=== PATIENT | female | born 1980 | race American Indian/Alaskan Native ===

== ENCOUNTER 2020-06-13 20:06 | Emergency (ER) | payer SELFPAY ==
[2020-06-13 22:49] VITALS: BP 124/74
--- NOTE | 2020-06-14 03:22 | Emergency Department Report ---
ED General Adult HPI - General Chief complaint: GI Bleed Stated complaint: BLOOD IN STOOL Time Seen by Provider: 06/13/20 23:38 Source: patient Mode of arrival: Ambulatory Limitations: No Limitations - History of Present Illness Initial comments: rectal pain , burning, itching, x 1 week interimittently, pt stat hx of hemrrhoids x 1 week, pt is tolerating po intake without n/v there has been no Fever or chills, symptoms are exacerbated by po intake pians relived by nothing tried . Onset/Timin -: week(s) - Related Data Previous Rx's Medication Instructions Recorded Last Taken Type Hydrocortisone 2.5% [Proctosol-Hc] 1 applicatio [place] BID PRN #1 tube 06/14/20 Unknown Rx Lidocaine [Lidocaine CREAM] 1 applicatio TP Q4H PRN 10 Days #1 06/14/20 Unknown Rx box Allergies Allergy/AdvReac Type Severity Reaction Status Date / Time No Known Allergies Allergy Unverified 06/13/20 21:10 ED Review of Systems ROS: Stated complaint: BLOOD IN STOOL Other details as noted in HPI Constitutional: denies: chills, fever Eyes: denies: eye pain, eye discharge, vision change ENT: denies: ear pain, throat pain Respiratory: denies: cough, shortness of breath, wheezing Cardiovascular: denies: chest pain, palpitations Endocrine: no symptoms reported Gastrointestinal: abdominal pain, nausea, diarrhea. denies: vomiting, melena, hematochezia Genitourinary: denies: urgency, dysuria, frequency, hematuria, discharge, dyspareunia Musculoskeletal: denies: back pain, joint swelling, arthralgia Skin: denies: rash, lesions Neurological: numbness. denies: headache, weakness, paresthesias, confusion, vertigo Psychiatric: as per HPI Hematological/Lymphatic: denies: easy bleeding, easy bruising ED Past Medical Hx - Past Medical History Previous Medical History?: No - Surgical History Hx Appendectomy: Yes - Social History Smoking Status: Never Smoker Substance Use Type: None - Medications Home Medications: Home Medications Medication Instructions Recorded Confirmed Last Taken Type Hydrocortisone 2.5% [Proctosol-Hc] 1 applicatio [place] BID PRN #1 tube 06/14/20 Unknown Rx Lidocaine [Lidocaine CREAM] 1 applicatio TP Q4H PRN 10 Days #1 06/14/20 Unknown Rx box ED Physical Exam - General Limitations: No Limitations General appearance: alert, in no apparent distress - Head Head exam: Present: atraumatic, normocephalic - Eye Eye exam: Present: normal appearance, EOMI Pupils: Present: normal accommodation - ENT ENT exam: Present: mucous membranes moist, TM's normal bilaterally, normal external ear exam. Absent: normal orophraynx - Neck Neck exam: Present: normal inspection, full ROM. Absent: tenderness - Respiratory Respiratory exam: Present: normal lung sounds bilaterally. Absent: respiratory distress, wheezes, stridor, chest wall tenderness - Cardiovascular Cardiovascular Exam: Present: regular rate, normal rhythm, normal heart sounds. Absent: bradycardia, tachycardia, systolic murmur, diastolic murmur, rubs, gallop, clicks, JVD - GI/Abdominal GI/Abdominal exam: Present: soft, normal bowel sounds. Absent: distended, tenderness, guarding, rebound, rigid, bruit, pulsatile mass - Rectal Rectal exam: Present: hemorrhoids (external 1x1 inch, moderate erythema no blr) - Extremities Exam Extremities exam: Present: normal inspection, full ROM, normal capillary refill - Back Exam Back exam: Present: normal inspection, full ROM, muscle spasm. Absent: tenderness, CVA tenderness (R), CVA tenderness (L), vertebral tenderness, rash noted - Neurological Exam Neurological exam: Present: alert, oriented X3, CN II-XII intact, normal gait, reflexes normal. Absent: motor sensory deficit - Expanded Neurological Exam Expanded Patient oriented to: Present: person, place, time Speech: Present: fluid speech Cranial nerves: EOM's Intact: Normal, Gag Reflex: Normal Motor strength exam: RUE: 5, LUE: 5, RLE: 5, LLE: 5 Best Eye Response ([place]): (4) open spontaneously Best Motor Response (Carlos): (6) obeys commands Best Verbal Response (Carlos): (5) oriented [place] Total: 15 - Psychiatric Psychiatric exam: Present: normal mood - Skin Skin exam: Present: warm, dry, intact, normal color. Absent: cyanosis ED Course Vital Signs 06/13/20 21:08 Temperature 97.7 F Pulse Rate 68 Respiratory 17 Rate Blood Pressure 124/74 O2 Sat by Pulse 100 Oximetry ED Medical Decision Making - Lab Data abdominal pain is resolved pno pain , dc to home with rx precrptsss. hydrate as directed , return to [facility] if you are unable tolerate po intak, pt vebalized ageement and understanding of discharge plan. - EKG Data Rate: normal - Medical Decision Making Hemorrhoids, take medications as prescribed follow up with pcp , return to ed if symptoms worsen. Critical care attestation.: If time is entered above; I have spent that time in minutes in the direct care of this critically ill patient, excluding procedure time. ED Disposition Clinical Impression: Hemorrhoids Qualifiers: Hemorrhoid type: second degree Qualified Code(s): K64.1 - Second degree hemorrhoids Disposition: DC-01 TO HOME OR SELFCARE Is pt being admited?: No Does the pt Need Aspirin: No Condition: Stable Instructions: Nonsurgical Procedures for Hemorrhoids, Hemorrhoids, Cogg-ro-Yjva Prescriptions: Lidocaine [Lidocaine CREAM] 1 applicatio TP Q4H PRN 10 Days #1 box PRN Reason: Hemorrhoids Hydrocortisone 2.5% [Proctosol-Hc] 1 applicatio [place] BID PRN #1 tube PRN Reason: Hemorrhoids Referrals: LOIN GARCIA MD [Staff Physician] - 3-5 Days Forms: Accompanied Note, Work/School Release Form(ED) Time of Disposition: 03:42
== END 2020-06-14 04:00 | disposition home or self-care (01) ==
LOC: ED 20:06
DX: K64.1 Second degree hemorrhoids (principal)
CPT/HCPCS: 99282

== ENCOUNTER 2020-07-14 20:40 | Emergency (ER) | payer SELFPAY ==
[2020-07-14] MEDS ORDERED: ETOMIDATE 20 MG/10 ML INJ IV ONE (22:22)
[2020-07-14] MEDS ORDERED: ROCURONIUM 50 MG/5 ML INJ IV ONE (22:23)
[2020-07-15] MEDS ORDERED: hydrOXYzine HCL 25 MG TAB PO ONE (02:16)
--- NOTE | 2020-07-15 02:19 | Emergency Department Report ---
ED General Adult HPI - General Chief complaint: Allergic Reaction Stated complaint: ALLERGIC REACTION Time Seen by Provider: 07/15/20 02:11 Source: patient Mode of arrival: Ambulatory Limitations: No Limitations - History of Present Illness Initial comments: Patient is a 39-year-old female presents emergency room with complaints of diffuse itching that began 3 days ago. She denies any rash. She denies any new soaps, lotions, detergents, foods, medications. She states that she has been taking Benadryl but continues to have itching. She denies any daily medications. She denies any facial swelling, difficulty swallowing, difficulty breathing, sensation of throat closing. No past medical history. No allergies to medications. - Related Data Previous Rx's Medication Instructions Recorded Last Taken Type Hydrocortisone 2.5% [Proctosol-Hc] 1 applicatio [place] BID PRN #1 tube 06/14/20 Unknown Rx Lidocaine [Lidocaine CREAM] 1 applicatio TP Q4H PRN 10 Days #1 06/14/20 Unknown Rx box Docusate Sodium [Colace] 100 mg PO BID PRN #60 capsule 07/15/20 Unknown Rx Ferrous Sulfate [Ferrous Sulfate 324 mg PO DAILY #30 tablet. 07/15/20 Unknown Rx 324 MG] Hydroxyzine HCl [hydrOXYzine] 50 mg PO Q8HR PRN #12 tablet 07/15/20 Unknown Rx Allergies Allergy/AdvReac Type Severity Reaction Status Date / Time No Known Allergies Allergy Verified 07/14/20 22:30 ED Review of Systems ROS: Stated complaint: ALLERGIC REACTION Other details as noted in HPI Comment: All other systems reviewed and negative ED Past Medical Hx - Past Medical History Previous Medical History?: No - Surgical History Past Surgical History?: Yes Hx Appendectomy: Yes Additional Surgical History: - Social History Smoking Status: Never Smoker Substance Use Type: Alcohol - Medications Home Medications: Home Medications Medication Instructions Recorded Confirmed Last Taken Type Hydrocortisone 2.5% [Proctosol-Hc] 1 applicatio [place] BID PRN #1 tube 06/14/20 Unknown Rx Lidocaine [Lidocaine CREAM] 1 applicatio TP Q4H PRN 10 Days #1 06/14/20 Unknown Rx box Docusate Sodium [Colace] 100 mg PO BID PRN #60 capsule 07/15/20 Unknown Rx Ferrous Sulfate [Ferrous Sulfate 324 mg PO DAILY #30 tablet. 07/15/20 Unknown Rx 324 MG] Hydroxyzine HCl [hydrOXYzine] 50 mg PO Q8HR PRN #12 tablet 07/15/20 Unknown Rx ED Physical Exam - General Limitations: No Limitations General appearance: alert, in no apparent distress - Head Head exam: Present: atraumatic, normocephalic - Eye Eye exam: Present: normal appearance. Absent: scleral icterus - ENT ENT exam: Present: mucous membranes moist - Respiratory Respiratory exam: Present: normal lung sounds bilaterally. Absent: respiratory distress, wheezes, rales, rhonchi, stridor, chest wall tenderness, accessory muscle use, decreased breath sounds, prolonged expiratory - Cardiovascular Cardiovascular Exam: Present: regular rate, normal rhythm, normal heart sounds. Absent: systolic murmur, diastolic murmur, rubs, gallop - Neurological Exam Neurological exam: Present: alert, oriented X3 - Psychiatric Psychiatric exam: Present: normal affect, normal mood - Skin Skin exam: Present: warm, dry, intact. Absent: rash ED Course Vital Signs 07/14/20 21:58 Temperature 98.1 F Pulse Rate 85 Respiratory 18 Rate Blood Pressure 122/55 O2 Sat by Pulse 100 Oximetry ED Medical Decision Making - Lab Data Result diagrams: 07/15/20 02:37 07/15/20 02:37 Lab Results 07/15/20 07/15/20 Range/Units 02:37 02:37 WBC 4.4 L (4.5-11.0) K/mm3 RBC 3.62 L (3.65-5.03) M/mm3 Hgb 8.2 L (10.1-14.3) gm/dl Hct 26.0 L (30.3-42.9) % MCV 72 L (79-97) fl MCH 23 L (28-32) pg MCHC 32 (30-34) % RDW 15.8 H (13.2-15.2) % Plt Count 427 (140-440) K/mm3 Sodium 136 L (137-145) mmol/L Potassium 4.3 (3.6-5.0) mmol/L Chloride 102.3 (98-107) mmol/L Carbon Dioxide 24 (22-30) mmol/L Anion Gap 14 mmol/L BUN 17 (7-17) mg/dL Creatinine 0.4 L (0.6-1.2) mg/dL Estimated GFR > 60 ml/min BUN/Creatinine Ratio 43 % Glucose 112 H (65-100) mg/dL Calcium 9.2 (8.4-10.2) mg/dL Total Bilirubin < 0.20 (0.1-1.2) mg/dL AST 17 (5-40) units/L ALT 9 (7-56) units/L Alkaline Phosphatase 70 (35-129) units/L Total Protein 7.1 (6.3-8.2) g/dL Albumin 4.3 (3.9-5) g/dL Albumin/Globulin Ratio 1.5 % Lipase 84 H (13-60) units/L - Medical Decision Making Patient is a 39-year-old female presents emergency room with complaints of diffuse itching that began 3 days ago. She denies any rash. She denies any new soaps, lotions, detergents, foods, medications. She states that she has been taking Benadryl but continues to have itching. She denies any daily medicati ons. She denies any facial swelling, difficulty swallowing, difficulty breathing, sensation of throat closing. No past medical history. No allergies to medications. Vitals are normal. on exam: no rash, No signs of angioedema or anaphylaxis, no scleral icterus or jaundice. Labs with stable microcytic anemia, otherwise stable. Patient given hydroxyzine while in the emergency department and symptoms improved. Patient given prescription for ferrous sulfate, Colace, hydroxyzine. Advised patient Please take medication as prescribed. Please follow-up with a primary care doctor for reexamination. Return to emergency room for any new or worsening symptoms. - Differential Diagnosis Pruritus, rash, cholestasis, bilirubinemia Critical care attestation.: If time is entered above; I have spent that time in minutes in the direct care of this critically ill patient, excluding procedure time. ED Disposition Clinical Impression: Pruritus, Microcytic anemia Disposition: DC-01 TO HOME OR SELFCARE Is pt being admited?: No Does the pt Need Aspirin: No Condition: Stable Instructions: Pruritus, Iron-Rich Diet Additional Instructions: Please take medication as prescribed. Please follow-up with a primary care doctor for reexamination. Return to emergency room for any new or worsening symptoms. Prescriptions: Docusate Sodium [Colace] 100 mg PO BID PRN #60 capsule PRN Reason: Constipation Ferrous Sulfate [Ferrous Sulfate 324 MG] 324 mg PO DAILY #30 tablet. Hydroxyzine HCl [hydrOXYzine] 50 mg PO Q8HR PRN #12 tablet PRN Reason: itching Referrals: SUSSY DIAZ MD [Primary Care Provider] - 2-3 Days Time of Disposition: 03:35 Print Language: SINGAPOREAN
[2020-07-15 02:53] LABS: Hemoglobin 8.2 gm/dl (10.1-14.3); Mean Corpuscular HGB Conc 32 % (30-34); Mean Corpuscular Volume 72 fl (79-97); Platelet Count 427 K/mm3 (140-440); Red Blood Count 3.62 M/mm3 (3.65-5.03); Red Cell Distribution Width 15.8 % (13.2-15.2)
[2020-07-15 03:17] LABS: Alanine Aminotransferase 9 units/L (7-56); Albumin 4.3 g/dL (3.9-5); Blood Urea Nitrogen 17 mg/dL (7-17); Calcium 9.2 mg/dL (8.4-10.2); Hemolysis Index 0
[2020-07-15 03:21] LABS: BUN/Creatinine Ratio 43
[2020-07-15] MEDS ORDERED: LORazepam 2 MG/ML VIAL ONE (03:57)
[2020-07-15] MEDS ORDERED: MIDAZOLAM 5 MG/5 ML INJ MDV IV ONE ×2 (04:01)
[2020-07-15] MEDS ORDERED: ROCURONIUM 50 MG/5 ML INJ IV ONE (04:06)
[2020-07-15 04:57] LABS: Anisocytosis 1+; Total Cells Counted 100
[2020-07-15 04:58] LABS: Platelet Estimate Consistent w Auto
[2020-07-15 05:01] VITALS: BP 100/57
== END 2020-07-15 04:00 | disposition home or self-care (01) ==
LOC: ED 20:40
DX: D50.8 Other iron deficiency anemias (principal); Z90.49 Acquired absence of other specified parts of digestive tract; Z98.890 Other specified postprocedural states
CPT/HCPCS: 36415; 80053; 83690; 85007; 85025; J2060; J2250

== ENCOUNTER 2020-08-03 19:40 | Emergency (ER) | payer SELFPAY ==
[2020-08-03 20:54] VITALS: BP 119/73
--- NOTE | 2020-08-03 20:55 | Emergency Department Report ---
ED General Adult HPI - General Chief complaint: Skin Rash Stated complaint: ITCHY ALL OVER Time Seen by Provider: 08/03/20 20:50 Source: patient Mode of arrival: Ambulatory Limitations: No Limitations - History of Present Illness Initial comments: 40 year old female with no significant pmhx presents to ED with c/o generalized itching. She states her symptoms started about 2 weeks ago. It has been constant and every day. She denies any rash, skin discoloration, swelling, difficulty breathing, coughing or wheezing. She denies any new meds, soaps, lotions, chemical exposure or any other new contacts. She denies any stress/anxiety or depression. She was seen her 07-14-20 for similar symptoms. Labs were done at the time, she was found to be anemic but otherwise w/u was unremarkable. She was d/c home with colace, hydroxyzine, and ferous sulfate. Pt states that tried benadryl without relief. She has also been taking the hydroxyzine with relief of her symptoms. She has not f/u with her PCP since this started. Nor has she seen certified neurodiagnostic technologist or allergies. MD Complaint: Generalized itching -: week(s) (2) - Related Data Previous Rx's Medication Instructions Recorded Last Taken Type Hydrocortisone 2.5% [Proctosol-Hc] [address] BID PRN #1 tube 06/14/20 Unknown Rx Lidocaine [Lidocaine CREAM] 1 applicatio TP Q4H PRN 10 Days #1 06/14/20 Unknown Rx box Docusate Sodium [Colace] 100 mg PO BID PRN #60 capsule 07/15/20 Unknown Rx Ferrous Sulfate [Ferrous Sulfate 324 mg PO DAILY #30 tablet.dr 07/15/20 Unknown Rx 324 MG] Hydroxyzine HCl [hydrOXYzine] 50 mg PO Q8HR PRN #12 tablet 08/03/20 Unknown Rx predniSONE [Deltasone] 50 mg PO QDAY #5 tab 08/03/20 Unknown Rx Allergies Allergy/AdvReac Type Severity Reaction Status Date / Time No Known Allergies Allergy Verified 07/14/20 22:30 ED Review of Systems ROS: Stated complaint: ITCHY ALL OVER Other details as noted in HPI Comment: All other systems reviewed and negative Constitutional: denies: chills, fever Eyes: denies: eye pain, eye discharge, vision change ENT: denies: ear pain, throat pain Respiratory: denies: cough, shortness of breath, wheezing Cardiovascular: denies: chest pain, palpitations Endocrine: no symptoms reported Gastrointestinal: denies: abdominal pain, nausea, diarrhea Musculoskeletal: denies: back pain, joint swelling, arthralgia Skin: pruritus. denies: rash, lesions Neurological: denies: headache, weakness, paresthesias Psychiatric: denies: anxiety, depression ED Past Medical Hx - Past Medical History Previous Medical History?: No - Surgical History Past Surgical History?: Yes Hx Appendectomy: Yes Additional Surgical History: - Social History Smoking Status: Never Smoker Substance Use Type: None - Medications Home Medications: Home Medications Medication Instructions Recorded Confirmed Last Taken Type Hydrocortisone 2.5% [Proctosol-Hc] [address] BID PRN #1 tube 06/14/20 Unknown Rx Lidocaine [Lidocaine CREAM] 1 applicatio TP Q4H PRN 10 Days #1 06/14/20 Unknown Rx box Docusate Sodium [Colace] 100 mg PO BID PRN #60 capsule 07/15/20 Unknown Rx Ferrous Sulfate [Ferrous Sulfate 324 mg PO DAILY #30 tablet.dr 07/15/20 Unknown Rx 324 MG] Hydroxyzine HCl [hydrOXYzine] 50 mg PO Q8HR PRN #12 tablet 08/03/20 Unknown Rx predniSONE [Deltasone] 50 mg PO QDAY #5 tab 08/03/20 Unknown Rx ED Physical Exam - General Limitations: No Limitations General appearance: alert, in no apparent distress - Head Head exam: Present: atraumatic, normocephalic, normal inspection - ENT ENT exam: Present: normal exam, normal orophraynx, mucous membranes moist - Neck Neck exam: Present: normal inspection, full ROM - Respiratory Respiratory exam: Absent: respiratory distress - Cardiovascular Cardiovascular Exam: Present: regular rate - GI/Abdominal GI/Abdominal exam: Present: soft. Absent: tenderness - Extremities Exam Extremities exam: Present: full ROM - Back Exam Back exam: Present: full ROM - Neurological Exam Neurological exam: Present: alert, oriented X3, CN II-XII intact, normal gait - Psychiatric Psychiatric exam: Present: normal affect, normal mood - Skin Skin exam: Present: normal color, other (few scattered healed excoriations noted bilareral UE, back, chest, abdomen, LE but otherwise no rash, or swelling). Absent: rash ED Course Vital Signs 08/03/20 20:49 Temperature 97.9 F Pulse Rate 79 Respiratory 16 Rate Blood Pressure 119/73 O2 Sat by Pulse 99 Oximetry ED Medical Decision Making - Medical Decision Making Patient presented to ED c/o persistent generalized itching without associated rash, swelling, or respiratory symptoms x 2 weeks despite trying hydrozyzine, and benadryl. she denied any new contacts. She denied stress/anxiety or drug use. She was seen here 07/14 for similar symptoms, other that anemia her w/u was unremarkable. She has not f/u with her PCP, nor has she seen certified neurodiagnostic technologist or mill helper. Pt is well appearing, not toxic, no respiratory distress and no evidence of angioedema. Her VS stable. She has no pain. No work up indicated at this time. . Will try round of steroids and continue the hydroxyzine but Discussed with pt that she needs to f/u with PCP and or certified neurodiagnostic technologist/mill helper. Pt expressed understanding of instructions and agreed with plan. She was stable a time of d/c. Critical care attestation.: If time is entered above; I have spent that time in minutes in the direct care of this critically ill patient, excluding procedure time. ED Disposition Clinical Impression: Pruritic condition Disposition: DC-01 TO HOME OR SELFCARE Is pt being admited?: No Does the pt Need Aspirin: No Instructions: Pruritus Additional Instructions: It is important that you follow up with your PCP if your symptoms continues. You can also f/u with Dermotologist listed below or your PCP can refer you to an mill helper/Eeg Technologist. Take the prednisone as prescribed, Continue the hydroxyzine as prescribed. Return to ED if symptoms worsens. 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
== END 2020-08-03 21:37 | disposition home or self-care (01) ==
LOC: ED 19:40
DX: L29.8 Other pruritus (principal); Z90.49 Acquired absence of other specified parts of digestive tract; Z79.899 Other long term (current) drug therapy
CPT/HCPCS: 99282

== ENCOUNTER 2022-01-01 21:02 | Emergency (ER) | payer SELFPAY ==
--- NOTE | 2022-01-02 08:02 | Emergency Department Report ---
ED Rash HPI - HPI Chief Complaint: Skin Rash Stated Complaint: ITCHING BODY Time Seen by Provider: 01/02/22 07:50 Duration: 3 Days Suspected Cause: Unknown Rash Symptoms: Yes Itching, No Facial Swelling, No Tongue/Oral Swelling, No Breathing Difficulties, No Choking Sensation, No Wheezing/Dyspnea, No Peeling, No Blistering, No Fever, No Lightheaded, No Malaise, No Myalgias Severity: mild Other History: This is a 41-year-old female with no known past medical history presents ED complaining of generalized itching for the past 2 to 3 days. Jose Roberto sauer states that she normally gets itchy from time to time. Patient denies any known contact allergens. Patient states is something in her blood that makes her itch. She denies any other symptoms. ED Review of Systems ROS: Stated complaint: ITCHING BODY Other details as noted in HPI Comment: All other systems reviewed and negative ED Past Medical Hx - Surgical History Hx Appendectomy: Yes Additional Surgical History: - Social History Smoking Status: Never Smoker Substance Use Type: None - Medications Home Medications: Home Medications Medication Instructions Recorded Confirmed Last Taken Type Hydrocortisone 2.5% [Proctosol-Hc] 1 applicatio [place] BID PRN #1 tube 06/14/20 Unknown Rx Lidocaine [Lidocaine CREAM] 1 applicatio TP Q4H PRN 10 Days #1 06/14/20 Unknown Rx box Docusate Sodium [Colace] 100 mg PO BID PRN #60 capsule 07/15/20 Unknown Rx Ferrous Sulfate [Ferrous Sulfate 324 mg PO DAILY #30 tablet.dr 07/15/20 Unknown Rx 324 MG] predniSONE [Deltasone] 50 mg PO QDAY #5 tab 08/03/20 Unknown Rx Hydrocortisone 1% [Hydrocortisone 1 applicatio TP TID #1 tube 01/02/22 Unknown Rx 1% CREAM] Hydroxyzine HCl [hydrOXYzine] 50 mg PO Q8HR PRN #20 tablet 01/02/22 Unknown Rx predniSONE [Deltasone] 20 mg PO QDAY #5 tab 01/02/22 Unknown Rx Rash Exam - Exam General: Vital signs noted. No distress. Alert and acting appropriately. HEENT: No Periorbital Edema, No Conjuctival Injection, No Chemosis, No Perioral Edema, No Tongue Edema, No Uvular Edema, No Compromised Airway, No Drooling Lungs: Yes Good Air Exchange, No Wheezes, No Ronchi, No Stridor, No Cough, No Labored Respirations, No Retractions, No Use of Accessory Muscles, No Other Abnormal Lung Sounds Heart: Yes Regular, No Murmur Skin: Yes Maculopapular Rash, No Urticarial Rash, No Morbilliform rash, No Bulla(e), No Excoriations, No Weeping, No Tenderness, No Erythema, No Edema, No Encrustations, No Other Other: Positive: Abdomen Normal, Neurologic Normal, Musculoskeletal Normal ED Course Vital Signs 01/01/22 22:13 Temperature 98.1 F Pulse Rate 67 Respiratory 20 Rate Blood Pressure 146/66 O2 Sat by Pulse 100 Oximetry ED Medical Decision Making - Medical Decision Making 41-year-old female presents with pruritus. Patient does as a history of pruritus and has had this condition for about a year. Patient is in no acute distress. Decadron IM given in the ED. Discussed short course of steroid use and Atarax for itching. Vital signs are normal patient is in no acute distress. At this time patient is safe for discharge. Patient understands instructions to follow-up with a senior network systems engineer/PCP. Patient is in no respiratory distress had no neurodeficit and speaking in clear sentences throughout ED stay. - Differential Diagnosis Pruritus, contact dermatitis, atopic dermatitis Critical care attestation.: If time is entered above; I have spent that time in minutes in the direct care of this critically ill patient, excluding procedure time. ED Disposition Clinical Impression: Pruritus Disposition: 01 HOME / SELF CARE / HOMELESS Is pt being admited?: No Does the pt Need Aspirin: No Condition: Stable Instructions: Pruritus Prescriptions: predniSONE [Deltasone] 20 mg PO QDAY #5 tab Hydrocortisone 1% [Hydrocortisone 1% CREAM] 1 applicatio TP TID #1 tube Hydroxyzine HCl [hydrOXYzine] 50 mg PO Q8HR PRN #20 tablet PRN Reason: itching Referrals: [facility] [Outside] - 3-5 Days JETHRO SOUTH MD [Staff Physician] - 3-5 Days Forms: Work/School Release Form(ED) Time of Disposition: 08:06
[2022-01-02] MEDS ORDERED: dexAMETHasone 20 MG/5 ML VIAL IM ONE (08:03)
[2022-01-02 09:01] VITALS: BP 128/83
== END 2022-01-02 08:57 | disposition home or self-care (01) ==
LOC: ED 21:02
DX: L29.9 Pruritus, unspecified (principal); Z90.89 Acquired absence of other organs; Z98.890 Other specified postprocedural states
CPT/HCPCS: 96372; 99282; J1100